=== PATIENT | female | born 1990 | race American Indian/Alaskan Native ===

== ENCOUNTER 2018-11-06 20:08 | Emergency (ER) | payer SELFPAY ==
[2018-11-06 20:15] VITALS: BP 141/83
[2018-11-06 20:38] LABS: Hematocrit 35.7 % (30.3-42.9); Hemoglobin 12.3 gm/dl (10.1-14.3); Mean Corpuscular HGB Conc 35 % (30-34); Mean Corpuscular Hemoglobin 30 pg (28-32); Mean Corpuscular Volume 88 fl (79-97); Platelet Count 333 K/mm3 (140-440); Red Blood Count 4.07 M/mm3 (3.65-5.03)
[2018-11-06 20:53] LABS: Alanine Aminotransferase 15 units/L (7-56); Albumin 3.9 g/dL (3.9-5); BUN/Creatinine Ratio 11; Blood Urea Nitrogen 8 mg/dL (7-17); Calcium 8.1 mg/dL (8.4-10.2); Hemolysis Index 3
[2018-11-06 21:55] LABS: Basophils % (Auto) 0.6 % (0.0-1.8); Eosinophils # (Auto) 0.2 K/mm3 (0.0-0.4); Lymphocytes # (Auto) 0.9 K/mm3 (1.2-5.4); Lymphocytes % (Auto) 16.9 % (13.4-35.0); Monocytes # (Auto) 0.6 K/mm3 (0.0-0.8); Monocytes % (Auto) 11.5 % (0.0-7.3)
--- NOTE | 2018-11-07 00:15 | Emergency Department Report ---
ED General Adult HPI - General Chief complaint: Chest Pain Stated complaint: ABDOMINAL PAIN/CHEST PAIN Time Seen by Provider: 11/06/18 23:24 Source: patient Mode of arrival: Ambulatory Limitations: No Limitations - History of Present Illness Initial comments: Patient is 28-year-old -[place] female who presents for abdominal pain bilat lower quad, x 1 week described as cramping, worsening over the last 2 days , pt's last menstrual cycle was 6 weeks ago, patient is concerned that she is , patient has secondary complaint of chest pain with cough there is no fever no chills cough is productive clear yellow with rhinorrhea there is no shortness of breath there is no wheezing there is no back pain there is no diaphoresis no dizziness or lightheadedness no activity intolerance has been no travel or prolonged sitting or standing patient was not on oral control Onset/Timin -: week(s) Location: abdomen Radiation: other (epigastric) Severity scale (0 -10): 8 Quality: burning, aching, other (cramping ) Consistency: intermittent Improves with: none Worsens with: movement Associated Symptoms: chest pain, cough. denies: diaphoresis, fever/chills, headaches, nausea/vomiting, shortness of breath, syncope, weakness Treatments Prior to Arrival: none - Related Data Previous Rx's Medication Instructions Recorded Last Taken Type Acetaminophen [Tylenol] 650 mg PO QID PRN #30 capsule 11/07/18 Unknown Rx Fluticasone [Flonase] 1 spray NS QDAY #1 bottle 11/07/18 Unknown Rx Loratadine 10 mg PO DAILY #30 capsule 11/07/18 Unknown Rx Allergies Allergy/AdvReac Type Severity Reaction Status Date / Time Sulfa (Sulfonamide Allergy Hives Verified 11/06/18 20:09 Antibiotics) ED Review of Systems ROS: Stated complaint: ABDOMINAL PAIN/CHEST PAIN Other details as noted in HPI Constitutional: denies: chills, fever Eyes: denies: eye pain, eye discharge, vision change ENT: throat pain, congestion Respiratory: cough Cardiovascular: chest pain Endocrine: no symptoms reported Gastrointestinal: abdominal pain. denies: nausea, vomiting, diarrhea, constipation, hematemesis Genitourinary: denies: urgency, dysuria, discharge Musculoskeletal: denies: back pain, joint swelling, arthralgia Skin: denies: rash, lesions Neurological: denies: headache, weakness, numbness, paresthesias, confusion, abnormal gait, vertigo Psychiatric: denies: anxiety, depression Hematological/Lymphatic: denies: easy bleeding, easy bruising ED Past Medical Hx - Past Medical History Hx GERD: Yes Hx Asthma: Yes Additional medical history: PCOS - Surgical History Additional Surgical History: Bunionectomy Bilateral Feet - Social History Smoking Status: Never Smoker Substance Use Type: None - Medications Home Medications: Home Medications Medication Instructions Recorded Confirmed Last Taken Type Acetaminophen [Tylenol] 650 mg PO QID PRN #30 capsule 11/07/18 Unknown Rx Fluticasone [Flonase] 1 spray NS QDAY #1 bottle 11/07/18 Unknown Rx Loratadine 10 mg PO DAILY #30 capsule 11/07/18 Unknown Rx ED Physical Exam - General Limitations: No Limitations General appearance: alert, in no apparent distress - Head Head exam: Present: atraumatic, normocephalic - Eye Eye exam: Present: normal appearance, PERRL, EOMI Pupils: Present: normal accommodation - ENT ENT exam: Present: normal orophraynx, mucous membranes moist, TM's normal bilaterally, normal external ear exam - Expanded ENT Exam Expanded Ear exam: Present: normal external inspection Mouth exam: Present: normal external inspection. Absent: trismus Teeth exam: Present: normal inspection Throat exam: Positive: tonsillar erythema, other (uvula midline no stridor no lesion no exudate ). Negative: tonsillomegaly, tonsillar exudate, R peritonsillar mass, L peritonsillar mass - Neck Neck exam: Present: normal inspection, full ROM. Absent: tenderness, meningismus, lymphadenopathy, thyromegaly - Respiratory Respiratory exam: Present: normal lung sounds bilaterally, chest wall tenderness (right lateral chest wall tenderness). Absent: respiratory distress, wheezes, stridor - Cardiovascular Cardiovascular Exam: Present: regular rate, normal rhythm, normal heart sounds. Absent: systolic murmur, diastolic murmur, rubs, gallop - GI/Abdominal GI/Abdominal exam: Present: soft, normal bowel sounds. Absent: distended, tenderness, guarding, rebound, rigid, mass, bruit, hernia - Rectal Rectal exam: Present: deferred - External exam: Present: other (deferred per patient ) - Extremities Exam Extremities exam: Present: normal inspection - Back Exam Back exam: Present: normal inspection, full ROM. Absent: tenderness, CVA tenderness (R), CVA tenderness (L), muscle spasm, paraspinal tenderness, vertebral tenderness, rash noted - Neurological Exam Neurological exam: Present: alert, oriented X3, CN II-XII intact, normal gait, reflexes normal - Psychiatric Psychiatric exam: Present: normal affect, normal mood - Skin Skin exam: Present: warm, dry, intact, normal color. Absent: rash ED Course Vital Signs 11/06/18 11/06/18 20:12 20:17 Temperature 98.6 F 98.6 F Pulse Rate 92 H 89 Respiratory 16 18 Rate Blood Pressure 141/83 141/83 O2 Sat by Pulse 100 100 Oximetry ED Medical Decision Making - Lab Data Result diagrams: 11/06/18 20:29 11/06/18 20:29 Labs 11/06/18 11/06/18 11/06/18 20:29 20:29 20:29 WBC 5.6 RBC 4.07 Hgb 12.3 Hct 35.7 MCV 88 MCH 30 MCHC 35 H RDW 13.0 L Plt Count 333 Lymph % (Auto) 16.9 Barber % (Auto) 11.5 H Eos % (Auto) 4.0 Baso % (Auto) 0.6 Lymph # 0.9 L Barber # 0.6 Eos # 0.2 Baso # 0.0 Total Counted Cancelled Seg Neutrophils % 67.0 Seg Neuts % (Manual) Cancelled Band Neutrophils % Cancelled Lymphocytes % (Manual) Cancelled Reactive Lymphs % (Man) Cancelled Monocytes % (Manual) Cancelled Eosinophils % (Manual) Cancelled Basophils % (Manual) Cancelled Metamyelocytes % Cancelled Myelocytes % Cancelled Promyelocytes % Cancelled Blast Cells % Cancelled Nucleated RBC % Cancelled Seg Neutrophils # 3.5 Seg Neutrophils # Man Cancelled Band Neutrophils # Cancelled Lymphocytes # (Manual) Cancelled Abs React Lymphs (Man) Cancelled Monocytes # (Manual) Cancelled Eosinophils # (Manual) Cancelled Basophils # (Manual) Cancelled Metamyelocytes # Cancelled Myelocytes # Cancelled Promyelocytes # Cancelled Blast Cells # Cancelled WBC Morphology Cancelled Hypersegmented Neuts Cancelled Hyposegmented Neuts Cancelled Hypogranular Neuts Cancelled Hypersegmented Polys Cancelled Smudge Cells Cancelled Toxic Granulation Cancelled Toxic Vacuolation Cancelled Dohle Bodies Cancelled Pelger-Huet Anomaly Cancelled Marzena Rods Cancelled Platelet Estimate Cancelled Clumped Platelets Cancelled Plt Clumps, EDTA Cancelled Large Platelets Cancelled Giant Platelets Cancelled Platelet Satelliting Cancelled Plt Morphology Comment Cancelled RBC Morphology Cancelled Dimorphic RBCs Cancelled Polychromasia Cancelled Hypochromasia Cancelled Poikilocytosis Cancelled Basophilic Stippling Cancelled Anisocytosis Cancelled Microcytosis Cancelled Macrocytosis Cancelled Spherocytes Cancelled Pappenheimer Bodies Cancelled Sickle Cells Cancelled Target Cells Cancelled Tear Drop Cells Cancelled Ovalocytes Cancelled Stomatocytes Cancelled Helmet Cells Cancelled [place] Bodies Cancelled [place] Rings Cancelled [place] Cells Cancelled Bite Cells Cancelled Crenated Cell Cancelled Elliptocytes Cancelled Acanthocytes (Spur) Cancelled Rouleaux Cancelled Hemoglobin C Crystals Cancelled Schistocytes Cancelled Malaria parasites Cancelled Subhash Bodies Cancelled Hem Pathologist Commnt Cancelled Sodium 135 L Potassium 3.9 Chloride 101.5 Carbon Dioxide 23 Anion Gap 14 BUN 8 Creatinine 0.7 Estimated GFR > 60 BUN/Creatinine Ratio 11 Glucose 93 Calcium 8.1 L Total Bilirubin 0.60 AST 19 ALT 15 Alkaline Phosphatase 57 Total Protein 6.5 Albumin 3.9 Albumin/Globulin Ratio 1.5 HCG, Qual Positive - Radiology Data Radiology results: report reviewed, image reviewed PROCEDURE: US OB TRANSVAGINAL TECHNIQUE: Real-time transvaginal sonography of the uterus, placenta, amniotic fluid, adnexa, and fetus was performed with image documentation. Measurements were obtained to determine age/size. M-mode Doppler was used to document heartbeat. HISTORY: abd pain cramping pos preg COMPARISONS: None . FINDINGS: CRL: No pole is identified on the study. Yolk Sac: A yolk sac is seen. . Gestational Sac: A gestational sac measures 14 mm corresponding to a gestational age of 6 weeks 2 days . Right Ovary: Normal . Left Ovary: Normal . The findings are most consistent with early intrauterine . failure is not excluded. Repeat ultrasound in approximately 14 days would be appropriate. IMPRESSION: A gestational sac is identified within the uterus. A yolk sac is seen. No pole is identified at this time. Gestational age is approximately 6 weeks. A repeat ultrasound in approximately 14 days would be appropriate as described. This document is electronically signed by Alisia Joseph DO., November 07 2018 01:48:13 AM ET Transcribed By: [facility] Dictated By: ALISIA JOSEPH MD Electronically Authenticated By: ALISIA JOSEPH MD Signed Date/Time: 11/07/18149 DD/ TD/TT: 11/07/18 0140 - Medical Decision Making US OB : Single IUP wks 2 days, no FHR noted, hc, plan follow up with [facility] in 2-3 days for repeat US and hcg pt advises symptom are improve, will tx URI with flonase, loratadine, tylenol, pt will follow up with OBGyn [facility] in 2-3 days , return to ed if syptoms wornsen. pt verbalized agreement and understanding of discharge plan. Critical care attestation.: If time is entered above; I have spent that time in minutes in the direct care of this critically ill patient, excluding procedure time. ED Disposition Clinical Impression: Abdominal pain during Qualifiers: Trimester: first trimester Qualified Code(s): O26.891 - Other specified related conditions, first trimester; R10.9 - Unspecified abdominal pain URI (upper respiratory infection) Qualifiers: URI type: unspecified viral URI Qualified Code(s): J06.9 - Acute upper respiratory infection, unspecified Disposition: DC-01 TO HOME OR SELFCARE Is pt being admited?: No Does the pt Need Aspirin: No Condition: Stable Instructions: Abdominal Pain in (ED), Upper Respiratory Infection (ED) Prescriptions: Acetaminophen [Tylenol] 650 mg PO QID PRN #30 capsule PRN Reason: Pain , Severe (7-10) Fluticasone [Flonase] 1 spray NS QDAY #1 bottle Loratadine 10 mg PO DAILY #30 capsule Referrals: ARIANA DUNN MD [Primary Care Provider] - 3-5 Days Forms: Work/School Release Form(ED) Time of Disposition: 02:28
--- NOTE | 2018-11-07 01:50 | Ultrasound Report ---
PROCEDURE: US OB TRANSVAGINAL TECHNIQUE: Real-time transvaginal sonography of the uterus, placenta, amniotic fluid, adnexa, and fe tus was performed with image documentation. Measurements were obtained to determine age/size. M -mode Doppler was used to document heartbeat. HISTORY: abd pain cramping pos preg COMPARISONS: None . FINDINGS: CRL: No pole is identified on the study. Yolk Sac: A yolk sac is seen. . Gestational Sac: A gestational sac measures 14 mm corresponding to a gestational age of 6 weeks 2 da ys . Right Ovary: Normal . Left Ovary: Normal . The findings are most consistent with early intrauterine . failure is not excluded . Repeat ultrasound in approximately 14 days would be appropriate. IMPRESSION: A gestational sac is identified within the uterus. A yolk sac is seen. No pole is identified at this time. Gestational age is approximately 6 weeks. A repeat ultrasound in approximately 14 days wo uld be appropriate as described. This document is electronically signed by Alisia Joseph DO., November 07 2018 01:48:13 AM ET
--- NOTE | 2018-11-07 01:54 | Ultrasound Report ---
PROCEDURE: US OB <= 14 WEEKS FETUS TECHNIQUE: Real-time transabdominal sonography of the uterus, placenta, amniotic fluid, adnexa, and fetus was performed with image documentation. Measurements were obtained to determine age/size. M-mode Doppler was used to document heartbeat. ADDITIONAL GESTATION: None. HISTORY: abd pain cramping pos preg COMPARISONS: None . FINDINGS: There is a gestational sac within the uterus. The gestational sac size of 14 mm corresponds to gestat ional age of 6 weeks. A yolk sac is identified. No pole is seen at this time. Both ovaries are identified and have a normal size and appearance. There is a dominant cyst on the le ft ovary this measures 15 mm. Cystic region with some complexity on the left ovary measures 27 mm. Mi nimal fluid identified in the lower pelvis. The findings are most consistent with an early intrauterine . failure is not exclu ded. The patient should have a recheck ultrasound in approximately 14 days. IMPRESSION: The findings are most consistent with early intrauterine with gestational age of approximat benny 6 weeks. The gestational sac is identified in the uterus. No pole seen at this time. Rechec k ultrasound in approximately 14 days would be of benefit. This document is electronically signed by Alisia Joseph DO., November 07 2018 01:52:11 AM ET
== END 2018-11-07 02:35 | disposition home or self-care (01) ==
LOC: ED 20:08
DX: O26.891 Other specified pregnancy related conditions, first trimester (principal); R10.30 Lower abdominal pain, unspecified; R10.10 Upper abdominal pain, unspecified; O99.511 Diseases of the respiratory system complicating pregnancy, first trimester; J06.9 Acute upper respiratory infection, unspecified; J45.909 Unspecified asthma, uncomplicated; O99.611 Diseases of the digestive system complicating pregnancy, first trimester; K21.9 Gastro-esophageal reflux disease without esophagitis; Z88.2 Allergy status to sulfonamides; Z3A.01 Less than 8 weeks gestation of pregnancy
CPT/HCPCS: 36415; 76801; 76817; 80053; 84702; 84703; 85025; 93005; 93010